=== PATIENT | female | born 1995 | race Asian ===

== ENCOUNTER 2019-06-22 06:12 | Emergency (ER) | payer OTHER ==
[~2019-06-22] VITALS: Ht 160 cm; Wt 54.0 kg
[2019-06-22] MEDS ORDERED: LORAZEPAM 0.5MG TABLET PO ONE (07:00)
[2019-06-22 08:28] VITALS: BP 115/80
== END 2019-06-22 08:29 | disposition home or self-care (01) ==
LOC: ER 06:12
DX: F41.9 Anxiety disorder, unspecified (principal); G47.00 Insomnia, unspecified
CPT/HCPCS: 93005; 99283